=== PATIENT | male | born 1985 | race American Indian/Alaskan Native ===

== ENCOUNTER 2018-11-28 23:07 | Emergency (ER) | payer OTHER ==
[2018-11-29] MEDS ORDERED: XYLOCAINE 1% MPF 5 mL INFILTRATI ONE (01:44)
--- NOTE | 2018-11-29 02:49 | Emergency Department Report ---
Abscess Boil HPI - HPI Chief Complaint: Skin/Abscess/Foreign Body Stated Complaint: HAND PAIN Time Seen by Provider: 11/29/18 01:43 Duration: >1 Week Location: Upper Extremity (right hand dorsal) Severity: Moderate History: Yes Pain, Yes Purulent Drainage, No Fever, No Numbness, No Foreign Body, No Previous History, No Insect Bite Home Medications: Previous Rx's Medication Instructions Recorded Last Taken Type Cephalexin [Keflex] 500 mg PO TID 10 Days #30 capsule 11/29/18 Unknown Rx amLODIPine [Norvasc] 5 mg PO DAILY #30 tab 11/29/18 Unknown Rx Allergies/Adverse Reactions: Allergies Allergy/AdvReac Type Severity Reaction Status Date / Time No Known Allergies Allergy Unverified 11/28/18 23:12 ED Review of Systems ROS: Stated complaint: HAND PAIN Other details as noted in HPI Constitutional: denies: chills, fever Eyes: denies: eye pain, eye discharge, vision change ENT: denies: ear pain, throat pain Respiratory: denies: cough, shortness of breath, wheezing Cardiovascular: denies: chest pain, palpitations Endocrine: no symptoms reported Gastrointestinal: denies: abdominal pain, nausea, diarrhea Genitourinary: denies: urgency, dysuria Musculoskeletal: denies: back pain, joint swelling, arthralgia Skin: other (abscess right dorsal hand 2nd metacarpal distal ). denies: rash, lesions Neurological: denies: headache, weakness, paresthesias Psychiatric: denies: anxiety, depression Hematological/Lymphatic: denies: easy bleeding, easy bruising ED Past Medical Hx - Past Medical History Previous Medical History?: Yes Hx Hypertension: Yes - Social History Smoking Status: Current Every Day Smoker - Medications Home Medications: Home Medications Medication Instructions Recorded Confirmed Last Taken Type Cephalexin [Keflex] 500 mg PO TID 10 Days #30 capsule 11/29/18 Unknown Rx amLODIPine [Norvasc] 5 mg PO DAILY #30 tab 11/29/18 Unknown Rx ED Abscess Boil Physical Exam - Exam General: Vital signs noted. No distress. Alert and acting appropriately. right hand 1 cm abscess right second metacarpal Size: 1 cm Exam: Yes Tenderness, Yes Fluctuance, Yes Normal Neurologic Exam, Yes Normal Circulation, No Surrounding Cellulites/Erythema, No Lymphangitis, No Crepitation, No Heart Murmur I & D Note - I & D Note I & D Note: Right hand abscess less than 1 cm fluctuant pain no erythema mild purulent drainage with Betadine solution anesthesia with 1% lidocaine plain 1 mL incision with 11 blade scalpel 1 straight minimal blunt probe was 6 inch forcepts scant output wound irrigated with 10 cc sterile saline, pt sterile dressing applied all bleeding controlled pt given wound care instructions pt verbalized agreement and understanding of same. Plan since last 1 cm ED Course Vital Signs 11/28/18 23:13 Temperature 97.7 F Pulse Rate 77 Respiratory 18 Rate Blood Pressure 174/116 O2 Sat by Pulse 96 Oximetry Critical care attestation.: If time is entered above; I have spent that time in minutes in the direct care of this critically ill patient, excluding procedure time. ED Medical Decision Making - Medical Decision Making Right hand abscess see I&D note all bleeding is controlled pt given wound care instructions pt verbalized agreement and understanding of discharge plan will follow up with pcp in 2-3 days. ED Disposition Clinical Impression: Abscess Disposition: DC-01 TO HOME OR SELFCARE Is pt being admited?: No Does the pt Need Aspirin: No Condition: Stable Instructions: Abscess (ED) Prescriptions: Cephalexin [Keflex] 500 mg PO TID 10 Days #30 capsule amLODIPine [Norvasc] 5 mg PO DAILY #30 tab Referrals: [facility] [Outside] - 3-5 Days Forms: Work/School Release Form(ED) Time of Disposition: 02:54
[2018-11-29 06:52] VITALS: BP 154/102
== END 2018-11-29 03:05 | disposition home or self-care (01) ==
LOC: ED 23:07
DX: L02.511 Cutaneous abscess of right hand (principal); I10 Essential (primary) hypertension; F17.200 Nicotine dependence, unspecified, uncomplicated

== ENCOUNTER 2022-05-07 01:10 | Emergency (ER) | payer SELFPAY ==
[2022-05-07] MEDS ORDERED: HYDROcodone/ACETAMINOPHEN 5-325 MG TAB PO ONE (01:28)
--- NOTE | 2022-05-07 02:07 | Emergency Department Report ---
ED Lower Extremity HPI - General Chief Complaint: Extremity Injury, Lower Stated Complaint: LT ANKLE PAIN/SWOLLEN Time Seen by Provider: 05/07/22 02:01 Source: patient, EMS Mode of arrival: Stretcher Limitations: No Limitations - History of Present Illness Initial Comments: Patient is in custody [facility] department states he was doing pull-ups and landed on his left ankle twisting and rolling it. Patient states he heard a pop. Patient now states Ambulatory. There is moderate swelling no abrasion laceration or bleeding. No gross deformity. Patient rates pain at 5/10 pain is exacerbated by weightbearing. Pain is relieved by offloading. Patient states he twisted same ankle 1 month ago. Patient denies other injury. MD Complaint: ankle injury - Related Data Previous Rx's Medication Instructions Recorded Last Taken Type amLODIPine 5 mg PO DAILY #30 tab 11/29/18 Unknown Rx cephALEXin [Keflex] 500 mg PO TID 10 Days #30 capsule 11/29/18 Unknown Rx traMADoL [Ultram] 50 mg PO Q6HR PRN #12 tablet 11/29/18 Unknown Rx HYDROcodone/APAP 5-325 [[place] 1 each PO Q6HR PRN #12 tablet 05/07/22 Unknown Rx 5-325 mg TAB] Allergies Allergy/AdvReac Type Severity Reaction Status Date / Time No Known Allergies Allergy Unverified 11/28/18 23:12 ED Review of Systems ROS: Stated complaint: LT ANKLE PAIN/SWOLLEN Other details as noted in HPI Constitutional: denies: chills, fever Eyes: denies: eye pain, eye discharge, vision change ENT: denies: ear pain, throat pain Respiratory: denies: cough, shortness of breath, wheezing Cardiovascular: denies: chest pain, palpitations Endocrine: no symptoms reported Gastrointestinal: denies: abdominal pain, nausea, diarrhea Genitourinary: denies: urgency, dysuria Musculoskeletal: other (Left ankle pain and swelling) Skin: denies: rash, lesions Neurological: denies: headache, weakness, paresthesias Psychiatric: denies: anxiety, depression Hematological/Lymphatic: denies: easy bleeding, easy bruising ED Past Medical Hx - Past Medical History Previous Medical History?: Yes Hx Hypertension: Yes - Surgical History Past Surgical History?: No - Social History Smoking Status: Never Smoker Substance Use Type: None - Medications Home Medications: Home Medications Medication Instructions Recorded Confirmed Last Taken Type amLODIPine 5 mg PO DAILY #30 tab 11/29/18 Unknown Rx cephALEXin [Keflex] 500 mg PO TID 10 Days #30 capsule 11/29/18 Unknown Rx traMADoL [Ultram] 50 mg PO Q6HR PRN #12 tablet 11/29/18 Unknown Rx HYDROcodone/APAP 5-325 [[place] 1 each PO Q6HR PRN #12 tablet 05/07/22 Unknown Rx 5-325 mg TAB] ED Physical Exam - General Limitations: No Limitations General appearance: alert, in no apparent distress - Head Head exam: Present: normocephalic, normal inspection - Eye Eye exam: Present: EOMI Pupils: Present: normal accommodation - ENT ENT exam: Present: mucous membranes moist - Neck Neck exam: Present: normal inspection, full ROM. Absent: tenderness - Respiratory Respiratory exam: Present: normal lung sounds bilaterally. Absent: respiratory distress, wheezes - Cardiovascular Cardiovascular Exam: Present: regular rate, normal rhythm, normal heart sounds. Absent: systolic murmur, diastolic murmur, rubs, gallop - GI/Abdominal GI/Abdominal exam: Present: soft, normal bowel sounds - Rectal Rectal exam: Present: deferred - Extremities Exam Extremities exam: Present: normal capillary refill - Expanded Lower Extremity Exam Left Ankle exam: Present: full ROM, tenderness, swelling (Left lateral pain with rotation distal pulses intact +2 [employer] less than 3 seconds negative Weinstein's test). Absent: abrasion, laceration, ecchymosis, deformity, crepidus, dislocation, erythema Foot/Toe exam: Present: full ROM, tenderness (Left lateral dorsal), swelling Neuro vascular tendon exam: Absent: pulse deficit, motor deficit, sensory deficit, tendon deficit Gait: Positive: observed and limited by pain - Back Exam Back exam: Present: normal inspection, full ROM. Absent: paraspinal tenderness, vertebral tenderness - Neurological Exam Neurological exam: Present: alert, oriented X3, CN II-XII intact, reflexes normal. Absent: motor sensory deficit - Expanded Neurological Exam Expanded Patient oriented to: Present: person, place, time Speech: Present: fluid speech Motor strength exam: RUE: 5, LUE: 5, RLE: 5, LLE: 5 DTR: ankle (R): 1+, ankle (L): 1+ Best Eye Response ([place]): (4) open spontaneously Best Motor Response ([place]): (6) obeys commands Best Verbal Response ([place]): (5) oriented [place] Total: 15 - Psychiatric Psychiatric exam: Present: normal affect, normal mood - Skin Skin exam: Present: warm, dry, intact, normal color. Absent: rash ED Course Vital Signs 05/07/22 01:11 Temperature 98 F Pulse Rate 77 Respiratory 18 Rate Blood Pressure 157/100 O2 Sat by Pulse 99 Oximetry ED Lower Extremity MDM - Radiology Data Radiology results: report reviewed, image reviewed XR ankle 3+V LT INDICATION / CLINICAL INFORMATION: left janette injury COMPARISON: None available. AP, LATERAL, AND OBLIQUE VIEWS LEFT ANKLE FINDINGS: Comminuted minimally displaced fracture of the os calcaneus is demonstrated with minimal flattening of Boehler's angle. The left ankle demonstrates a well-corticated calcification adjacent the fibula thought reflect sequelae of prior avulsion injury. Left ankle otherwise unremarkable. IMPRESSION: 1. Acute fracture of the left os calcaneus. Signer Name: Javon Prabhakar II, MD Signed: 05/07/2022 2:41 AM Workstation Name: [email or web address] Transcribed By: YAO Dictated By: JAVON PRABHAKAR II, MD Electronically Authenticated By: JAVON PRABHAKAR II, MD Signed Date/Time: 05/07/22240 DD/ 0 TD/TT: - Medical Decision Making X-ray as above comminuted calcaneal fracture Left mildly displaced, discussed same with patient plan posterior splint, crutches follow-up with orthopedics. Return to custody [employer] at this time. Patient will follow-up with [facility] in a.m. Patient DC'd in stable condition at this time. Pain is improved. Splint check, crutches demonstration prior to discharge. Critical care attestation.: If time is entered above; I have spent that time in minutes in the direct care of this critically ill patient, excluding procedure time. ED Disposition Clinical Impression: Left calcaneal fracture Qualifiers: Encounter type: initial encounter Calcaneus location: unspecified portion of calcaneus Fracture type: closed Fracture alignment: displaced Qualified Code(s): S92.002A - Unspecified fracture of left calcaneus, initial encounter for closed fracture Disposition: HOME / SELF CARE / HOMELESS Is pt being admited?: No Does the pt Need Aspirin: No Condition: Stable Instructions: Cast or Splint Care, Adult, [id number], Crutch Use, Adult Additional Instructions: Take medications as prescribed, splint and crutches as prescribed, follow-up with orthopedics as directed. Return to emergency department should symptoms worsen. Prescriptions: HYDROcodone/APAP 5-325 [[place] 5-325 mg TAB] 1 each PO Q6HR PRN #12 tablet PRN Reason: Pain Referrals: HOLLIS ROSAS MD [Staff Physician] - 3-5 Days Time of Disposition: 03:56
--- NOTE | 2022-05-07 02:46 | XRay Report ---
XR ankle 3+V LT INDICATION / CLINICAL INFORMATION: left janette injury COMPARISON: None available. AP, LATERAL, AND OBLIQUE VIEWS LEFT ANKLE FINDINGS: Comminuted minimally displaced fracture of the os calcaneus is demonstrated with minimal flattening o f Boehler's angle. The left ankle demonstrates a well-corticated calcification adjacent the fibula th ought reflect sequelae of prior avulsion injury. Left ankle otherwise unremarkable. IMPRESSION: 1. Acute fracture of the left os calcaneus. Signer Name: Trino Prabhakar II, MD Signed: 05/07/2022 2:41 AM Workstation Name: [id number]
[2022-05-07] MEDS ORDERED: oxyCODONE /ACETAMINOPHEN 5-325MG TAB PO ONE (03:56)
[2022-05-07] MEDS ORDERED: IBUPROFEN 800 MG TAB PO ONE (04:17)
[2022-05-07 04:42] VITALS: BP 142/82
== END 2022-05-07 04:32 | disposition home or self-care (01) ==
LOC: ED 01:10
DX: S92.002A Unspecified fracture of left calcaneus, initial encounter for closed fracture (principal); I10 Essential (primary) hypertension; Z98.890 Other specified postprocedural states; Z79.899 Other long term (current) drug therapy; X50.1XXA Overexertion from prolonged static or awkward postures, initial encounter; Y93.89 Activity, other specified; Y92.89 Other specified places as the place of occurrence of the external cause; Y99.8 Other external cause status
CPT/HCPCS: 99284